=== PATIENT | male | born 1970 | race Caucasian/White ===

== ENCOUNTER 2020-08-18 11:26 | Emergency (ER) | payer BC, SELFPAY ==
[2020-08-18 11:39] VITALS: BP 152/89; PULSE 72; RESP 14; TEMP 36.6; O2SAT 97
--- NOTE | 2020-08-18 12:05 | W.ED.GENAD ---
Discharge Plan Disposition Patient Disposition: HOME Condition: Stable Discharge Details Clinical Impression: Acute effusion of right ear, Drainage from ear, right Primary Care Provider: Unknown,Unknown ED Provider: Polly Myers Home Meds and New Rx's Prescriptions: New amoxicillin 500 mg tablet 500 mg PO TID 10 Days Qty: 30 RF: 0 prednisone 20 mg tablet See Rx Instructions .ROUTE .COMPLEX Qty: 12 RF: 0 Discharge Instructions Instructions: Otitis Externa (ED), Ear Infection (ED), Serous Otitis Media (ED) Additional Instructions: You have swelling of your right ear canal which may be consistent with an otitis externa (and external ear infection) and your ear fluid drainage may be due to a punctured eardrum from otitis media (middle ear infection). Take Tylenol every 4 hours and ibuprofen every 6 hours as needed directed for pain Continue to use your antibiotic/steroid eardrops as directed until finished. Your prescriptions have been sent electronically to your pharmacy. Call the pharmacy to make sure your prescriptions are ready before pickup. Take the prescriptions as directed. You can start initially with only the oral steroids as you may have improvement with this in addition to the Tylenol and ibuprofen. If your symptoms do not improve over the next 1 to 2 days, you can start the oral antibiotics. You can follow-up with the ear nose and throat doctor if your symptoms. Return immediately to the emergency department if you develop any worsening or new concerning symptoms. Referrals: Claudio Gongora MD [ [facility] STAFF PHYSICIAN] - Discharge Data Discharge Date/Time-TO BE ENTERED AT DEPARTURE: 08/18/20 13:36 Discharge Physician: Polly Myers Medical Decision Making 49-year-old male presents with drainage from right ear with some aching pain for the past 3 days Patient had bilateral cerumen impaction removed from ears a few days ago followed by development of right ear pain and drainage and has since been placed on antibiotics steroid otic drops. Presents with persistent yellow drainage from right ear. Patient appears comfortable and nontoxic. He is afebrile. 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 His right ear canal appears edematous with yellow discharge significantly limiting review of ear canal and unable to view right TM. No significant pain with pulling on auricle or tragus. Will add oral steroids and oral antibiotics for possibility of otitis media along with otitis externa. Advised to continue using the otic drops. A ear wick was placed to help with administration of the eardrops. He was given additional ear wick to go. He was given ENT follow-up if needed. Usual and customary return precautions given prior to discharge. HPI General Mode of arrival: ambulatory. Date/Time Provider Initiated Documentation: 08/18/20 11:53. Limitations to Documentation: no limitations. Information obtained by: patient. HPI Narrative: Patient is a 49-year-old male who presents with drainage from his right ear for the past 3 days. Patient states he was at an urgent care a few days ago for decreased hearing in his left ear and they noted cerumen impaction and lavaged both of his ears at that time. He states he went home after they cleared out his left ear but shortly after returning home he developed right ear fullness, decreased hearing and nausea so he returned to the urgent care. They noted fluid drainage from his right ear and placed him on an antibiotic steroid eardrop. He states he then flew on an airplane the following day and has had continued yellow drainage from his ear with occasional aching pain. He denies any fever, vomiting, neck pain. Related Data Home Medications Medication Instructions Recorded Confirmed amoxicillin 500 mg PO TID 10 Days #30 tab 08/18/20 prednisone See Rx Instructions .ROUTE 08/18/20 .COMPLEX #12 tab Previous Rx's Medication Instructions Recorded amoxicillin 500 mg PO TID 10 Days #30 tab 08/18/20 prednisone See Rx Instructions .ROUTE 08/18/20 .COMPLEX #12 tab Allergies Allergy/AdvReac Type Severity Reaction Status Date / Time No Known Allergies Allergy Unverified 08/18/20 11:42 General Stated Complaint: EarProblem MENDEZ: 5 Review of Systems All systems reviewed & are unremarkable except as noted in HPI and below Constitutional Constitutional: Reports as per HPI, Denies chills and Denies fever(s) Eyes Eyes: Denies blurry vision ENT Ears, Nose, Mouth, and Throat: Denies dizziness, Reports ear discharge, Reports otalgia, Denies sore throat and Denies throat swelling Cardiovascular Cardiovascular: Denies chest pain and Denies dyspnea Respiratory Respiratory: Denies cough and Denies dyspnea Gastrointestinal Gastrointestinal: Denies abdominal pain, Denies diarrhea and Denies vomiting Genitourinary Genitourinary: Denies hematuria and Denies dysuria Musculoskeletal Musculoskeletal: Denies back pain and Denies numbness Integumentary/Breasts Skin/Breast: Denies lesions and Denies rash Neurologic Neurologic: Denies dizziness, Denies localized weakness and Denies numbness Allergic/Immunologic Allergic/Immunologic: Denies throat swelling [facility] Medical History (Updated 08/18/20 @ 13:20 by Polly Myers DO) No significant past medical history Surgical History (Updated 08/18/20 @ 13:20 by Polly Myers DO) History of ear surgery Social History Smoking/Tobacco Use Status: Never Smoking risk assessment performed?: Yes Alcohol Intake: current Drug use: Current Sobriety Substance use type: does not use Do you feel safe at home: Yes Do you feel safe in your relationship?: Yes Exam Const General: cooperative, healthy appearing and no acute distress HENMT Head: normal to inspection Ears: hearing grossly normal bilaterally, TM normal on the left, mastoids normal bilaterally, EAC abnormal edema on the right and otic discharge purulent on the right and unable to visualize TM on the right Face and sinus: normal facial exam Eyes General: appearance normal, both eyes and all related structures EOM: EOM intact bilaterally Neck Neck: normal visual inspection and No submandibular swelling Lymphatic: no lymphadenopathy noted Resp Effort & Inspection: normal respiratory effort and able to speak in complete sentences Cardio Rate: regular rate Skin General skin exam: no rashes or lesions noted Neuro General: patient alert, patient awake and patient oriented x3 Cognition: normal cognition Speech: speech normal Motor: muscle tone normal throughout Sensory Exam: no sensory deficits noted Extrem General: normal to inspection, full ROM, capillary refill normal, no calf tenderness bilaterally and no edema Psych Appearance: grossly normal Mental Status: mental status grossly normal Speech and Movement: speech and movement normal Affect: normal affect Course Vital Signs Vital signs: Vital Signs Temperature 97.9 F 08/18/20 11:39 Pulse 72 08/18/20 11:39 Respiratory Rate 14 08/18/20 11:39 Blood Pressure 152/89 H 08/18/20 11:39 Pulse Oximetry 97 08/18/20 11:39 Temperature 97.9 F 08/18/20 11:39 Pulse 72 08/18/20 11:39 Respiratory Rate 14 08/18/20 11:39 Respiratory Effort Non-Labored 08/18/20 11:41 Blood Pressure 152/89 H 08/18/20 11:39 Blood Pressure Position Sitting 08/18/20 11:39 Pulse Oximetry 97 08/18/20 11:39 Oxygen Delivery Method Room Air 08/18/20 11:39 Oxygen Flow Rate 0 08/18/20 11:39 Pain Level 1 08/18/20 11:39
== END 2020-08-18 13:36 | disposition home or self-care (01) ==
PROVIDERS: Emergency Provider Physician Assistant
DX: H92.01 Otalgia, right ear (principal); H92.11 Otorrhea, right ear
CPT/HCPCS: 99283